=== PATIENT | male | born 1990 | race Caucasian/White ===

== ENCOUNTER 2018-09-30 07:27 | Emergency (ER) | payer BC, OTHER ==
[2018-09-30 07:44] VITALS: BP 111/60
--- NOTE | 2018-09-30 08:10 | UC ---
Skin Complaint HPI - HPI Summary HPI Summary: Patient is 28 year old male, who present today to the urgent care for medication refills for his chronic scalp infection. He is here for refill of Minocycline 100mg bid for bacterial infection that pt gets from wearing his hard hat. He has been seeing renal social worker and has been on this medication for past 3-4 years . He cut a prescription last time in June from telemedicine. He was seeing dermatoligist who is no longer practicing and now has follow-up appointment with a new renal social worker on 10/17/18. He has bumps on his occipital area, no active drainage or discharge. He denies any fever, chills or any other symptoms. f. - History of Current Complaint Chief Complaint: UCSkin Time Seen by Provider: 09/30/18 07:52 Stated Complaint: MED REFILL Hx Obtained From: Patient Pain Intensity: 0 - Allergy/Home Medications Allergies/Adverse Reactions: Allergies Allergy/AdvReac Type Severity Reaction Status Date / Time No Known Allergies Allergy Verified 07/15/13 09:21 Home Medications: Home Medications Minocycline HCl [Minocycline Hydrochloride] 100 mg PO BID 09/30/18 [History Confirmed 09/30/18] PMH/Surg Hx/FS Hx/Imm Hx - Additional Past Medical History Additional PMH: Past Medical History : None Past Surgical History: Tonsillectomy Family History : non contributory Social History : Daily alcohol, non smoker, no drug use. Previously Healthy: Yes - Surgical History Surgical History: Yes Surgery Procedure, Year, and Place: tonsilectomy - Family History Known Family History: Positive: Non-Contributory - Social History Alcohol Use: Daily Alcohol Amount: 20/weekends Substance Use Type: None Smoking Status (MU): Never Smoked Tobacco Review of Systems All Other Systems Reviewed And Are Negative: Yes Constitutional: Positive: Negative Skin: Positive: Rash - Follicular infection Eyes: Positive: Negative ENT: Positive: Negative Respiratory: Positive: Negative Cardiovascular: Positive: Negative Gastrointestinal: Positive: Negative Genitourinary: Positive: Negative Motor: Positive: Negative Neurovascular: Positive: Negative Musculoskeletal: Positive: Negative Neurological: Positive: Negative Psychological: Positive: Negative Is Patient Immunocompromised?: No Physical Exam - Summary Physical Exam Summary: Vital Signs Reviewed: Yes A+Ox3, no distress Eyes: Conjunctiva Clear ENT: Hearing grossly normal neck: supple Respiratory: Positive: No respiratory distress, No accessory muscle use Cardiovascular: skin color reflect adequate perfusion Musculoskeletal Exam: FARLEY x 4 without difficulty Neurological: Positive: Alert, ambulatory without difficulty Psychological: Positive: Normal Response To Family Skin: Folliculitis of the occipital areas noted. No active drainage is noted. No abscess or fluctuation Triage Information Reviewed: Yes Vital Signs: Initial Vital Signs Temp 97.8 F 09/30/18 07:37 Pulse 55 09/30/18 07:37 Resp 16 09/30/18 07:37 BP 111/60 09/30/18 07:37 Pulse Ox 100 09/30/18 07:37 Vital Signs Reviewed: Yes Course/Dx - Course Course Of Treatment: During the visit today, we discussed the findings and further plan. I will prescribe the medication to the pharmacy and he'll follow up with his renal social worker as scheduled Patient expressed understanding . - Diagnoses Provider Diagnosis: Folliculitis Discharge - Sign-Out/Discharge Documenting (check all that apply): Patient Departure All imaging exams completed and their final reports reviewed: No Studies - Discharge Plan Condition: Stable Disposition: HOME Prescriptions: Minocycline (NF) 100 mg PO BID 30 Days #60 cap Patient Education Materials: Folliculitis (ED) Referrals: No Primary Care Phys,NOPCP [Primary Care Provider] - Additional Instructions: Please start taking the medication as prescribed to the pharmacy . Follow up with your renal social worker as scheduled on 10/25/18 Return to Urgent care / ER if symptoms get worse. - Billing Disposition and Condition Condition: STABLE Disposition: Home
== END 2018-09-30 08:24 | disposition home or self-care (01) ==
LOC: UCCORT 07:27
DX: L73.9 Follicular disorder, unspecified (principal); Z76.0 Encounter for issue of repeat prescription
CPT/HCPCS: 99202; G0463